=== PATIENT | male | born 1945 | race Caucasian/White ===

== ENCOUNTER 2016-12-26 09:14 | Observation (INO) | payer OTHER ==
[2016-12-19 12:00] LABS: BASOPHILS 0.6 %; BASOPHILS ABSOLUTE 0.04 10/3/uL (0.0-0.16); EOSINOPHILS 6.8 %; EOSINOPHILS ABSOLUTE 0.43 10/3/uL (0.0-0.53); HEMATOCRIT 35.7 % (40.0-51.0); HEMOGLOBIN 12.4 g/dL (13.6-17.8); LYMPHOCYTES 28.4 %; MEAN CORPUS HGB CONC 34.7 g/dL (32.0-36.0); MEAN CORPUSCULAR HEMOGLOB 31.5 pg (26.0-34.0); MEAN CORPUSCULAR VOLUME 90.6 fL (80-100); MEAN PLATELET VOLUME 9.9 fL (9.2-13.0); MONOCYTES 8.5 %; MONOCYTES ABSOLUTE 0.54 10/3/uL (0.21-1.20); NEUTROPHILS 55.7 %; NEUTROPHILS ABSOLUTE 3.52 10/3/uL (2.02-8.40); PLATELET COUNT 277 10/3/uL (150-400); RBC DISTRIBUTION WIDTH 13.4 % (12.0-16.0); RED CELL COUNT 3.94 10/6/uL (4.7-6.1); WHITE BLOOD CELLS 6.3 10/3/uL (4.5-10.5)
[2016-12-19 12:01] LABS: MANUAL DIFF NO %
[2016-12-19 12:07] LABS: PROTIME (NOT ORD) 13.2 SEC (12.0-14.5)
[2016-12-19 12:13] LABS: ASCORBIC ACID (UR NOT ORDER) NEG (NEG); BILIRUBIN, URINE NEGATIVE (NEG); KETONE, URINE NEGATIVE (NEG); LEUKOCYTE ESTERASE(NOT OR NEG (NEG); WBC (NOT ORDERED) (RFLEX) < 1 (0-5)
[2016-12-19 12:30] LABS: BUN (BLOOD UREA NITROGEN) 20 MG/DL (6-23); CALCIUM, SERUM 9.1 MG/DL (8.5-10.4); CHLORIDE, SERUM 98 MMOL/L (96-112); CO2 (CARBON DIOXIDE) 27 MMOL/L (24-34); CREATININE 1.03 MG/DL (0.70-1.30); GFR AFRICAN AMERICAN 86 ML/MIN (>=60); GFR NON AFRICAN AMERICAN 74 ML/MIN (>=60); GLUCOSE, SERUM 87 MG/DL (60-99); POTASSIUM, SERUM 4.2 MMOL/L (3.5-5.3); SODIUM, SERUM 136 MMOL/L (135-148)
--- NOTE | ~2016-12-26 | OP ---
Record Of Operation [facility] [address] [place]. [address] NAME: LINDA PIMENTEL : 49 STATUS : ADM IN PAT#: [id number] AGE: 71 ADM/REG DATE : 12/26/16 MR#: [id number] REPORT SERV DATE: 12/26/16 DICTATED BY: CLINT CUADRA DATE: 12/26/16 REPORT STATUS : Draft TRANSCRIBED BY: MODL DATE: 12/26/16 DATE OF PROCEDURE: 12/26/2016 PREOPERATIVE DIAGNOSIS: Metastatic prostate cancer and stress urinary incontinence. POSTOPERATIVE DIAGNOSIS: Metastatic prostate cancer and stress urinary incontinence. PROCEDURES: 1. Placement of artificial urinary sphincter. 2. Bilateral scrotal orchiectomies. 3. Flexible cystoscopy. MAINTENANCE INSTRUCTOR: Rashmi Lam. ANESTHESIA: General. BLOOD LOSS: 20 mL. FLUID REPLACEMENT: 1.2 L. DRAINS: A 14-Burmese Cuadra catheter per urethra. INDICATION: A 71-year-old male who has had a prior radical prostatectomy and has stress incontinence. He also has metastatic prostate cancer and has been on androgen deprivation therapy in the form of Lupron. TECHNIQUE: The patient was identified, brought to the operating room, administered general anesthetic agent by the Anesthesia Service, and intubated. The perineum is clipped. The entire lower abdomen, penis, groin, scrotum, and perineum were prepped for 10 minutes and draped with sterile plastic drapes. A 14-Burmese Cuadra catheter was passed in the bladder, and the bladder is emptied and the catheter was capped. A perineal incision made along the median raphe of the perineum with a 15 blade scalpel after infiltrating with 0.5% Marcaine plain. I carried down to the bulbocavernosus muscles and sharply the bulbocavernosus muscles in the midline exposing the bulbous urethra. The bulbous urethra was mobilized laterally and posteriorly. I am able to place a right angle clamp behind the bulbous urethra. I then used a measuring device to measure the circumference of the urethra and it measures 3.5 cm. I therefore selected a 4 cm cuff. I dissected up along the inferior scrotum and delivered the left testis out through the incision. I opened the tunica vaginalis and skeletonized the spermatic cord. The left vas deferens was isolated, clamped proximally, transected distally, and tied with 2-0 chromic. The remainder of the spermatic cord on the left side was bisected, clamp proximally, and transected distally. The cord was infiltrated with 0.5% Marcaine plain and then suture ligated with a 2-0 silk suture. A marking suture was placed on the left testis, it was placed off the field. I then did the exact same procedure on the right side. Record Of Operation [facility] [address] [facility] [address] NAME: LINDA PIMENTEL : 49 STATUS : ADM IN PAT#: [id number] AGE: 71 ADM/REG DATE : 12/26/16 MR#: [id number] REPORT SERV DATE: 12/26/16 DICTATED BY: CLINT CUADRA DATE: 12/26/16 REPORT STATUS : Draft TRANSCRIBED BY: ALEC DATE: 12/26/16 I dissected up along the right spermatic cord and palpated the medial wall of the inguinal canal on the right side. I perforated the medial wall in the inguinal canal. This was somewhat difficult as there was a lot of give and play in this tissue. I used the tip of a Jazmín clamp. Once I entered the retropubic space, I made a space with the tip of my finger and placed a nasal speculum through this fenestration. I then placed an empty 30 mL reservoir in that space. I then filled the reservoir with 25 mL of saline. It held it nicely. It was shot and closed. I then selected a 4 cm cuff, placed it around the bulbous urethra and secured it. I then took the pump mechanism, placed it in the dependent portion of the right hemiscrotum. I anchored it into position with 3-0 Vicryl. I then brought the tubing down. I trimmed the excess tubing and used the Quick Connect system to connect the pump to the reservoir and the pump to the cuff. Once all were connected, I allowed the system to fill the cuff. I could see it under direct vision fill nicely. I then emptied the cuff by activating the pump. I locked it open and performed flexible cystoscopy. There was no erosion in the urethra. The anastomosis was widely patent. The bladder was entered. There were no urothelial lesions. The ureteral orifices were normal. The bladder had good capacity. There was no perforation into the bladder. The bladder was left full. The cystoscope was removed. The patient leaked with the cuff open. I then closed the cuff. He did not leak. I then opened the cuff again and pressed the deactivating device to leave locked open. At this point, copious amounts of antibiotic irrigation were used on the wounds. I closed the bulbocavernosus muscles with [id number] 3-0 Vicryl sutures. Dartos layer was closed with running 3-0 Vicryl. The tubing mechanisms had been secured with 3-0 Vicryl. The skin was closed with 4-0 Monocryl. Dressings were applied. The catheter was connected. The 14-Burmese Cuadra was placed back into the bladder and connected to drainage. The patient was awakened, taken to the recovery unit in stable and satisfactory condition. PF/MODL Clint Cuadra M.D. / [id number] CC: Colin Kerr MD
[~2016-12-26 09:14] MED LIST: AMIT25 PO; ASAB PO; CELEBREX2 PO; CINNAMON PLUS1 EACH PO; FLAVONOID; GLUCOPHAGE1000 MG PO; GLUCOTRO10 PO; HYDROCHLOROT25 MG PO; LEVEMFLXPN SC; LIPITOR10 PO; LIPO FLAVINOID PO; LISINOPRIL40 MG PO; MELA3 PO; MOBIC15 MG PO; NEUR300 PO; NORV5 PO; OSTEO BI-FLEX1 EACH PO; T PO; ZANTAC150 MG PO
[2016-12-27] MEDS ORDERED: K500 PO (11:45)
== END 2016-12-27 12:27 | disposition home or self-care (01) ==
LOC: SDC 09:14 → 4SO 15:59
PROVIDERS: Urology
PROC: 0VBC0ZZ Excision of Bilateral Testes, Open Approach (ICD-10-PCS; principal; 2016-12-26 11:30)
PROC: 0VH Male Reproductive System, Insertion (ICD-10-PCS; 2016-12-26 11:30)
DX: N39.3 Stress incontinence (female) (male) (principal); I10 Essential (primary) hypertension; E11.9 Type 2 diabetes mellitus without complications; K21.9 Gastro-esophageal reflux disease without esophagitis; Z87.891 Personal history of nicotine dependence; E78.00 Pure hypercholesterolemia, unspecified; Z98.890 Other specified postprocedural states
CPT/HCPCS: 80048; 81001; 82962; 85025; 85610; 85730; 88305; 93005; 96374; 96375; A9270-GY; C1815; G0378; J1170; J1580; J2405; J2710; J3010; J3370